=== PATIENT | male | born 1940 | race Caucasian/White ===

== ENCOUNTER 2020-06-15 19:50 | Inpatient (IN) ==
[2020-06-15] MEDS ORDERED: VANCOMYCIN/WATER FOR INJ (PEG) 1 GM/200 ML BAG IV ONE (20:29)
--- NOTE | 2020-06-15 20:35 | ERNOTE ---
Medical Problem HPI - General Chief Complaint: Diabetes Related Problem Time Seen by Provider: 06/15/20 20:28 - Immun/Allergies/Home Medications Immunizations: IMMUNIZATION HX Immunizations Up to Date Yes History of Influenza Vaccine More Information Required Hx Pneumococcal Vaccination Yes Allergies/Adverse Reactions: Allergies No Known Allergies Allergy (Unverified 06/15/20 20:04) Home Medications: HOME MEDICATIONS Enalapril Maleate 10 mg PO BID 06/15/20 [Last Taken Unknown] Gabapentin 100 mg PO QAM 06/15/20 [Last Taken Unknown] Gabapentin 200 mg PO QPM 06/15/20 [Last Taken Unknown] Metoprolol Succinate 100 mg PO DAILY 06/15/20 [Last Taken Unknown] Pioglitazone HCl 15 mg PO DAILY 06/15/20 [Last Taken Unknown] Simvastatin 40 mg PO HS 06/15/20 [Last Taken Unknown] Tamsulosin HCl 0.4 mg PO DAILY 06/15/20 [Last Taken Unknown] glipiZIDE [Glipizide Xl] 20 mg PO DAILY 06/15/20 [Last Taken Unknown] metFORMIN HCL [Metformin HCl] 1,000 mg PO BID 06/15/20 [Last Taken Unknown] - History of Present History Narrative: 79-year-old male presents complaining of left foot redness and swelling states that he had not taken his socks off since 4 to 5 days ago and when his daughter checked on him there was redness and a foul odor. Patient has history of diabetes and neuropathy and therefore chronically has pain in the foot he denies any new sensation any fevers and states that his sugar has been controlled. Review of Systems - Review of Systems Constitutional: Present: See HPI Skin: Present: See HPI Endocrine: Present: See HPI All Other Systems: All systems neg except as marked Medical History (Last Reviewed 06/15/20 @ 20:33 by Naeem Blanchard MD) Diabetes Diabetic neuropathy Hyperlipidemia Hypertension Surgical History: Surgical History (Last Reviewed 06/15/20 @ 20:33 by Naeem Blanchard MD) No pertinent past surgical history Family History: Family History (Last Reviewed 06/15/20 @ 20:33 by Naeem Blanchard MD) Other Family history non-contributory Social History: (Last Reviewed 06/15/20 @ 20:33 by Naeem Blanchard MD) Tobacco: Smoking Status: Former smoker Smoking packs per day: 1 Years smoked: 40 Alcohol: alcohol intake: never Physical Exam - Physical Exam General Appearance: Present: wd/wn, alert, no apparent distress Head Exam: Present: normal inspection, no evidence of injury Eye Exam: Normal inspection: bilateral Ears, Nose, Throat: Present: normal ENT inspection Neck: Present: normal inspection Respiratory: Present: no respiratory distress, no accessory muscle use Cardiovascular/Chest: Present: regular rate, rhythm Gastrointestinal/Abdominal: Present: nondistended Back Exam: Present: normal range of motion Extremity Exam: Present: other - Left foot great toe erythema tenderness and warmth with lymphatic spread up the foot noted is red streaking Neurological Exam: Present: alert, oriented, normal mood/affect Skin Exam: Present: other - As noted above on extremity exam Progress - Results and Orders Patient's Lab Results:: I have reviewed the patient's lab results. - Vital Signs Patient's Vital Signs:: I have reviewed the patient's vital signs. Vital Signs: Vital Signs 06/15/20 20:12 Temperature 38.1 C H Pulse Rate 101 H Respiratory Rate 15 Blood Pressure 111/44 O2 Sat by Pulse Oximetry 99 - Progress/Reassessment Chief Complaint: Diabetes Related Problem - Transfer of Care Physician Sign Out: Naeem Blanchard Receiving Physician: Braulio Betancourt Pending Results: CT/MRI results Expected Disposition: Admit Plan - Plan Plan: Patient handed off to oncoming ER doctor to follow-up CT scan patient likely for admission due to need to control atrial fibrillation with RVR Departure Clinical Impression: Atrial fibrillation with RVR, Abdominal pain - Departure Disposition: Short Term Hospital Inpatient Condition: Fair
[2020-06-15 20:47] LABS: Mean Cell Volume 101.4 fl (78-100); Mean Corpuscular Hemoglobin 30.6 pg (27-31); Mean Corpuscular Hgb Conc 30.2 g/dl (32-36); Mean Platelet Volume 12.6 fl (8-11.3); Platelet Count 208 K/mm3 (150-450); Red Blood Count 2.22 M/mm3 (4.7-6.0); Red Cell Distribution Width 23.2 % (11.5-14.0); White Blood Count 30.2 K/mm3 (4.0-10.5)
[2020-06-15 20:50] LABS: Hematocrit 22.5 % (42.0-52.0); Hemoglobin 6.8 gm/dL (13.5-18.0)
[2020-06-15 20:51] LABS: Total Cells Counted 100
[2020-06-15] MEDS ORDERED: NORMAL SALINE 500 ML IV ONE (20:56)
[2020-06-15 20:59] LABS: Albumin * 3.8 gm/dl (3.4-5.0); Anion Gap 18.3 mmol/L (6.8-13.8); BUN/Creatinine Ratio 23.8 (9.0-21.6); Bilirubin, Total 0.8 mg/dL (0.0-1.1); Ca. Corrected For Albumin 8.7 mg/dL (8.4-10.2); Calcium * 8.9 mg/dL (7.9-10.9); Carbon Dioxide 22.3 mmol/L (24-32.6); Potassium 4.6 mmol/L (3.4-4.6); Total Protein 7.7 gm/dL (6.2-8.2)
[2020-06-15 21:01] LABS: CRP 15.9 mg/dL (0.0-0.9)
[2020-06-15 21:04] LABS: Anisocytosis 1+; Band 5 % (0-2.0); Lymphocyte 15 % (20-51); Monocyte 10 % (0-9); Neutrophil 70 % (42-75); Neutrophil # 21.1 K/mm3 (1.3-6.0); Platelet Estimate Normal (NORMAL)
[2020-06-15 21:16] LABS: Hemoglobin A1C 6.4 % (3.80-5.60)
[2020-06-15] MEDS ORDERED: NORMAL SALINE 1,000 ML IV ONE (21:17)
[2020-06-15] MEDS ORDERED: diphenhydrAMINE HCL 50 MG/ML VIAL IV ONE (21:51)
[2020-06-15] MEDS ORDERED: FUROSEMIDE 10 MG/ML VIAL IV ONE (21:51)
[2020-06-15] MEDS ORDERED: ACETAMINOPHEN 325 MG TABLET PO ONE (21:51)
[2020-06-15] MEDS ORDERED: ACETAMINOPHEN 325 MG TABLET ONE (23:30)
[2020-06-15] MEDS ORDERED: diphenhydrAMINE HCL 50 MG/ML VIAL ONE (23:30)
[2020-06-16] MEDS ORDERED: FUROSEMIDE 10 MG/ML VIAL ONE (03:13)
[2020-06-16 04:28] LABS: Mean Corpuscular Hemoglobin 30.7 pg (27-31); Mean Corpuscular Hgb Conc 30.4 g/dl (32-36); Platelet Count 145 K/mm3 (150-450); Red Blood Count 2.02 M/mm3 (4.7-6.0); Red Cell Distribution Width 21.2 % (11.5-14.0); White Blood Count 23.1 K/mm3 (4.0-10.5)
[2020-06-16 04:30] LABS: Hematocrit 20.4 % (42.0-52.0); Hemoglobin 6.2 gm/dL (13.5-18.0)
[2020-06-16] MEDS: INSULIN LISPRO 100 UNITS/ML VIAL SC SCH ×3 (11:30→21:05)
[2020-06-16] MEDS: ENALAPRIL MALEATE 5 MG TABLET PO SCH ×2 (12:41→21:12)
[2020-06-16 14:28] LABS: Hematocrit 28.5 % (42.0-52.0); Hemoglobin 8.9 gm/dL (13.5-18.0); Mean Cell Volume 96.9 fl (78-100); Mean Corpuscular Hemoglobin 30.3 pg (27-31); Mean Corpuscular Hgb Conc 31.2 g/dl (32-36); Mean Platelet Volume 12.7 fl (8-11.3); Platelet Count 159 K/mm3 (150-450); Red Blood Count 2.94 M/mm3 (4.7-6.0); Red Cell Distribution Width 19.9 % (11.5-14.0); White Blood Count 22.9 K/mm3 (4.0-10.5)
[2020-06-16] MEDS: HYDROcodone/ACETAMINOPHEN 1 EACH TABLET PO PRN (14:31)
[2020-06-16 14:35] LABS: Total Cells Counted 100
[2020-06-16 14:47] LABS: Albumin * 3.5 gm/dl (3.4-5.0); Anion Gap 13.1 mmol/L (6.8-13.8); BUN/Creatinine Ratio 25.2 (9.0-21.6); Bilirubin, Total 0.7 mg/dL (0.0-1.1); Ca. Corrected For Albumin 8.7 mg/dL (8.4-10.2); Calcium * 8.6 mg/dL (7.9-10.9); Carbon Dioxide 24.3 mmol/L (24-32.6); Potassium 4.4 mmol/L (3.4-4.6); Total Protein 7.3 gm/dL (6.2-8.2)
[2020-06-16 15:02] LABS: Band 14 % (0-2.0); Basophil 3 % (0-1); Lymphocyte 12 % (20-51); Monocyte 10 % (0-9); Neutrophil 61 % (42-75)
[2020-06-16 15:06] LABS: Anisocytosis 2+
[2020-06-16 15:07] LABS: Giant Platelets Trace; Platelet Estimate Normal (NORMAL); Polychromasia 1+; Spherocyte Trace
--- NOTE | 2020-06-16 15:39 | CONS ---
- Reason for consultation (1) Diabetic foot ulcer associated with type 2 diabetes mellitus, with fat layer exposed Date of Service: 06/16/20 HPI - General Date of Service: 06/16/20 Narrative: Patient is seen today at the request of Dr. Fowler for ulceration to the left foot with foul odor, as well as cellulitis to the left foot. Patient reports history of callusing to the foot, but did notice any open sores until last week when he was walking through his house without shoes on. He was leaving a wet spot on the floor from his drainage when he would step. His daughter then checked on him and noticed redness and swelling along with a foul odor coming from the foot. He presented to the ED for further evaluation, and on top of having ulceration and cellulitis of his left foot, he was also found to be severely anemic. He was admitted for IV antibiotic therapy, and to manage anemia. I was consulted for care of his foot. He denies any nausea, vomiting, fevers, or chills. Only reports feeling very tired and weak. Source: patient - History of Present Illness Allergies/Adverse Reactions: Allergies No Known Allergies Allergy (Unverified 06/15/20 20:04) Home Medications: Home Medications Medication Instructions Recorded Last Taken Enalapril Maleate 10 mg PO BID 06/15/20 Unknown Gabapentin 100 mg PO QAM 06/15/20 Unknown Gabapentin 200 mg PO QPM 06/15/20 Unknown Metoprolol Succinate 100 mg PO DAILY 06/15/20 Unknown Pioglitazone HCl 15 mg PO DAILY 06/15/20 Unknown Simvastatin 40 mg PO HS 06/15/20 Unknown Tamsulosin HCl 0.4 mg PO DAILY 06/15/20 Unknown glipiZIDE [Glipizide Xl] 20 mg PO DAILY 06/15/20 Unknown metFORMIN HCL [Metformin HCl] 1,000 mg PO BID 06/15/20 Unknown Medications - Medications Current Medications: Current Medications Hydrocodone Bitart/Acetaminophen (Hydrocodone/Acetaminophen 1 Each Tablet) 1 each PO Q3H PRN PRN Reason: Moderate Pain (pain scale 4-6) Stop: 07/16/20 10:53 Last Admin: 06/16/20 14:31 Dose: 1 each Documented by: Enalapril Maleate (Enalapril Maleate 5 Mg Tablet) 10 mg PO BID [facility] Stop: 07/16/20 11:01 Last Admin: 06/16/20 12:41 Dose: 10 mg Documented by: Insulin Human Lispro (Insulin Lispro 100 Units/Ml Vial) 0 units SC DORA CURRY; Protocol Stop: 07/16/20 12:01 Last Admin: 06/16/20 11:30 Dose: Not Given Documented by: Review of Systems - Review of Systems Generalized/Overall Review: Present: Weakness, Fatigue. Absent: Chills, Fever Cardiac: Present: Edema Abdominal: Absent: Nausea, Vomiting, Diarrhea Musculoskeletal: Present: Other - foot pain Neurological: Present: Numbness, Tingling Skin: Present: Other - erythema left foot; ulcer left foot Physical Examination - Exam Narrative: Erythema noted about the medial forefoot and great toe. This currently does not extend past the 1st metatarsal. Area is warm to touch. There is edema about the lower leg and foot. There are 2 ulcerations to the left foot. The first located at the plantar surface of the 1st metatarsal head measuring 3 x 1.8 x 1.5 cm. The second is in the 1st webspace and communicates via tunneling with the first ulceration. This ulcer measures 2 x 1.2 x 1.5 cm. Loss of tissue to both is full thickness with exposure of subcutaneous fat layer. Bases of both ulcerations covered with black-louise, foul smelling, necrotic tissue. Surrounding skin callused, erythematous and edematous. There is a moderate amount of foul smelling sero- purulent drainage. No exposed tendon or bone at this time. Vital Signs: Vital Signs - Last Taken Temp 37.1 C 06/16/20 15:03 Pulse 71 06/16/20 15:03 Resp 18 06/16/20 15:03 BP 123/59 06/16/20 15:03 Pulse Ox 96 06/16/20 15:03 O2 Oxygen Delivery Method Room Air Constitutional: Present: Alert, Oriented x3, Cooperative Peripheral Pulses: dorsalis-pedis (L): 1+ - PT pulse 1+; CRFT brisk Extremity: Present: lower extremity edema, pedal edema Skin Exam: Present: other - see details above Neurologic: Present: sensory deficit Appearance: Present: appropriate appearance Eye contact: Present: cooperative - Results and Findings: Lab/Microbiology results last 24 hrs: Abnormal/Pending Laboratory Last 24 HRS 06/16/20 06/16/20 06/16/20 14:25 14:25 04:25 WBC 22.9 H 23.1 H D RBC 2.94 L 2.02 L Hgb 8.9 L 6.2 L* Hct 28.5 L 20.4 L* MCV 101.0 H MCHC 31.2 L 30.4 L RDW 19.9 H 21.2 H Plt Count 145 L MPV 12.7 H 12.0 H Band Neuts % (Manual) 14 H Lymphocytes % (Manual) 12 L Monocytes % (Manual) 10 H Basophils % (Manual) 3 H Neutrophils # (Manual) 14.0 H Lymphocytes # (Manual) Monocytes # (Manual) 2.3 H Basophils # (Manual) 0.7 H Carbon Dioxide Anion Gap BUN 35 H Creatinine Est GFR (Non-Af Amer) 53 L D BUN/Creatinine Ratio 25.2 H Random Glucose 54 L D Hemoglobin A1c Lactic Acid, Venous C-Reactive Prot, Quant Crossmatch 06/15/20 06/15/20 06/15/20 21:08 20:38 20:38 WBC RBC Hgb Hct MCV MCHC RDW Plt Count MPV Band Neuts % (Manual) Lymphocytes % (Manual) Monocytes % (Manual) Basophils % (Manual) Neutrophils # (Manual) Lymphocytes # (Manual) Monocytes # (Manual) Basophils # (Manual) Carbon Dioxide Anion Gap BUN Creatinine Est GFR (Non-Af Amer) BUN/Creatinine Ratio Random Glucose Hemoglobin A1c 6.4 H Lactic Acid, Venous 2.7 H* C-Reactive Prot, Quant Crossmatch See Detail 06/15/20 06/15/20 20:38 20:38 WBC 30.2 H RBC 2.22 L Hgb 6.8 L* Hct 22.5 L* MCV 101.4 H MCHC 30.2 L RDW 23.2 H Plt Count MPV 12.6 H Band Neuts % (Manual) 5 H Lymphocytes % (Manual) 15 L Monocytes % (Manual) 10 H Basophils % (Manual) Neutrophils # (Manual) 21.1 H Lymphocytes # (Manual) 4.5 H Monocytes # (Manual) 3.0 H Basophils # (Manual) Carbon Dioxide 22.3 L Anion Gap 18.3 H BUN 40 H Creatinine 1.68 H Est GFR (Non-Af Amer) 42 L BUN/Creatinine Ratio 23.8 H Random Glucose 150 H Hemoglobin A1c Lactic Acid, Venous C-Reactive Prot, Quant 15.9 H Crossmatch - Assessments/Findings (1) Diabetic foot ulcer associated with type 2 diabetes mellitus, with fat layer exposed Diagnosis(s): Discussed with patient exam findings as well as xray findings. Xrays not showing any osseous destruction to indicate bone infection. Discussed appearance of foot as well as ulcerations. Recommend debridment of ulcerations today, patient gives verbal consent for debridement. Ulcerations debrided to subcutaneous tissue with #15 blade, excising all surrounding callused and devitalized tissue down to healthy, bleeding subcutaneous tissue. Some necrotic tissue does remain over the surfaces of the ulcerations following debridement. Hemostasis is achieve with compression. Patient tolerated well without complication. Following debridement of the ulcers, a deep swab culture is obtained. Will continue on current IV antibiotics, and will adjust accordingly when culture results return. Ulcers dressed today with Aquacel Ag, dry gauze, roll gauze, secured with an ANALILIA bandage applied under mild compression to try to reduce some edema about the lower leg and foot. Will continue to monitor this closely. Advised that if foot does not show improvement, will likely order MRI to assess for deeper infection, possible bone infection, that is not showing on xrays. States understanding of this. I will plan to continue daily dressing changes to monitor his progress. Problem: Acute Qualifiers: Diabetic foot ulcer location: other Laterality: left Qualified Code(s): E11.621 - Type 2 diabetes mellitus with foot ulcer; L97.522 - Non-pressure chronic ulcer of other part of left foot with fat layer exposed (2) Cellulitis of foot, left Problem: Acute
[2020-06-16] MEDS: GABAPENTIN 100 MG CAPSULE PO SCH (17:11)
[2020-06-16] MEDS: VANCOMYCIN/WATER FOR INJ (PEG) 1.5 GM/300 ML BAG IV SCH (17:14)
[2020-06-16] MEDS: SIMVASTATIN 40 MG TABLET PO SCH (21:12)
--- NOTE | 2020-06-16 21:33 | HP ---
Chief Complaint - Chief Complaint Date of Service: 06/16/20 Time of Service: 09:45 Chief Complaint: Left foot redness, drainage, and swelling History of Present Illness: Stephen is a 79 yo male with Non-insulin dependent Type 2 Diabetes mellitus with diabetic neuropathy. He reports a week ago he started to notice a sore on his left foot. It progressively became more painful, started to drain yellow fluid, became more swollen, and more red. He presented to the [facility] ER due to worsening symptoms. In the ER bloodwork and imaging were performed. Xrays showed evidence of cellulitis with air associated with ulcer, and no evidence of osteomyelitis. WBC was significantly elevated at 30k and Hgb was 6.8. He denies history of anemia. He reports his foot has had a little bloody discharge at times, but no other significant blood loss. He has not been on antibiotics recently. He reports the wound began to smell bad in the last few days. Medical History (Last Reviewed 06/15/20 @ 21:56 by Chana Faulkner RN) Diabetes Diabetic neuropathy Hyperlipidemia Hypertension Surgical History: Surgical History (Last Reviewed 06/15/20 @ 21:56 by Chana Faulkner RN) No pertinent past surgical history Family History: Family History (Last Reviewed 06/15/20 @ 21:56 by Chana Faulkner RN) Other Family history non-contributory Social History: (Last Reviewed 06/15/20 @ 21:56 by Chana Faulkner RN) Tobacco: Smoking Status: Former smoker Smoking packs per day: 1 Years smoked: 40 Alcohol: alcohol intake: never Review Of Systems (GEN) - Review of Systems Generalized/Overall Review: Present: Weakness. Absent: Chills, Fever EENTM: Present: No Symptoms Reported Respiratory: Absent: Cough, Shortness of Breath Cardiac: Absent: Chest Pain, Edema Abdominal: Absent: Nausea, Vomiting, Abdominal Pain Genitourinary: Present: No Symptoms Reported Musculoskeletal: Present: Joint Pain Neurological: Present: Numbness, Weakness Skin: Present: Change in Color, Other - left foot redness, swelling, and drainage Endocrine: Present: No Symptoms Reported Immunizations: IMMUNIZATION HX Immunizations Up to Date Yes History of Influenza Vaccine More Information Required Hx Pneumococcal Vaccination Yes Allergies/Adverse Reactions: Allergies Allergy/AdvReac Type Severity Reaction Status Date / Time No Known Allergies Allergy Unverified 06/15/20 20:04 Home Medications: HOME MEDICATIONS Enalapril Maleate 10 mg PO BID 06/15/20 [Last Taken Unknown] Gabapentin 100 mg PO QAM 06/15/20 [Last Taken Unknown] Gabapentin 200 mg PO QPM 06/15/20 [Last Taken Unknown] Metoprolol Succinate 100 mg PO DAILY 06/15/20 [Last Taken Unknown] Pioglitazone HCl 15 mg PO DAILY 06/15/20 [Last Taken Unknown] Simvastatin 40 mg PO HS 06/15/20 [Last Taken Unknown] Tamsulosin HCl 0.4 mg PO DAILY 06/15/20 [Last Taken Unknown] glipiZIDE [Glipizide Xl] 20 mg PO DAILY 06/15/20 [Last Taken Unknown] metFORMIN HCL [Metformin HCl] 1,000 mg PO BID 06/15/20 [Last Taken Unknown] Exam - Exam Vital Signs: Vital Signs - Last Taken Temp 36.4 C 06/16/20 21:11 Pulse 71 06/16/20 21:12 Resp 18 06/16/20 21:11 BP 123/41 06/16/20 21:12 Pulse Ox 99 06/16/20 21:11 Constitutional: Present: Alert, Oriented x3, Cooperative ENT Exam: Present: hearing grossly normal Eye Exam: bilateral eye: normal inspection Respiratory: Present: lungs clear, normal breath sounds, no respiratory distress Cardiovascular/Chest: Present: regular rate, rhythm, no murmur Peripheral Pulses: radial (R): 2+, radial (L): 2+ Abdomen: Present: Normal bowel sounds, soft, nontender, nondistended, no rebound tenderness Skin Exam: Present: other - erythema from left great toe up medial aspect of foot to ankle. Foul smelling wound with purulent drainage. Open ulcer on the plantar surface of 1st metatarsal head Diagnostic Studies: Abnormal Lab Results 06/15/20 06/16/20 06/16/20 Range/Units 21:08 04:25 14:25 WBC 23.1 H D 22.9 H (4.0-10.5) K/mm3 RBC 2.02 L 2.94 L (4.7-6.0) M/mm3 Hgb 6.2 L* 8.9 L (13.5-18.0) gm/dL Hct 20.4 L* 28.5 L (42.0-52.0) % MCV 101.0 H (78-100) fl MCHC 30.4 L 31.2 L (32-36) g/dl RDW 21.2 H 19.9 H (11.5-14.0) % Plt Count 145 L (150-450) K/mm3 MPV 12.0 H 12.7 H (8-11.3) fl Band Neuts % (Manual) 14 H (0-2.0) % Lymphocytes % (Manual) 12 L (20-51) % Monocytes % (Manual) 10 H (0-9) % Basophils % (Manual) 3 H (0-1) % Neutrophils # (Manual) 14.0 H (1.3-6.0) K/mm3 Monocytes # (Manual) 2.3 H (0.0-1.0) k/mm3 Basophils # (Manual) 0.7 H (0.0-0.1) k/mm3 BUN (6-23) mg/dL Est GFR (Non-Af Amer) (60-130) mL/min BUN/Creatinine Ratio (9.0-21.6) Random Glucose (70-110) mg/dL Crossmatch See Detail 06/16/20 Range/Units 14:25 WBC (4.0-10.5) K/mm3 RBC (4.7-6.0) M/mm3 Hgb (13.5-18.0) gm/dL Hct (42.0-52.0) % MCV (78-100) fl MCHC (32-36) g/dl RDW (11.5-14.0) % Plt Count (150-450) K/mm3 MPV (8-11.3) fl Band Neuts % (Manual) (0-2.0) % Lymphocytes % (Manual) (20-51) % Monocytes % (Manual) (0-9) % Basophils % (Manual) (0-1) % Neutrophils # (Manual) (1.3-6.0) K/mm3 Monocytes # (Manual) (0.0-1.0) k/mm3 Basophils # (Manual) (0.0-0.1) k/mm3 BUN 35 H (6-23) mg/dL Est GFR (Non-Af Amer) 53 L D (60-130) mL/min BUN/Creatinine Ratio 25.2 H (9.0-21.6) Random Glucose 54 L D (70-110) mg/dL Crossmatch Microbiology 06/15/20 21:08 Blood Culture - Preliminary Blood NO GROWTH 24 HOURS 06/15/20 20:38 Blood Culture - Preliminary Blood NO GROWTH 24 HOURS Laboratory Results WBC 22.9 K/mm3 (4.0-10.5) H 06/16/20 14:25 RBC 2.94 M/mm3 (4.7-6.0) L 06/16/20 14:25 Hgb 8.9 gm/dL (13.5-18.0) L 06/16/20 14:25 Hct 28.5 % (42.0-52.0) L 06/16/20 14:25 MCV 96.9 fl (78-100) 06/16/20 14:25 MCH 30.3 pg (27-31) 06/16/20 14:25 MCHC 31.2 g/dl (32-36) L 06/16/20 14:25 RDW 19.9 % (11.5-14.0) H 06/16/20 14:25 Plt Count 159 K/mm3 (150-450) 06/16/20 14:25 MPV 12.7 fl (8-11.3) H 06/16/20 14:25 Neutrophils % (Manual) 61 % (42-75) 06/16/20 14:25 Band Neuts % (Manual) 14 % (0-2.0) H 06/16/20 14:25 Lymphocytes % (Manual) 12 % (20-51) L 06/16/20 14:25 Monocytes % (Manual) 10 % (0-9) H 06/16/20 14:25 Basophils % (Manual) 3 % (0-1) H 06/16/20 14:25 Neutrophils # (Manual) 14.0 K/mm3 (1.3-6.0) H 06/16/20 14:25 Lymphocytes # (Manual) 2.7 k/mm3 (1.5-3.5) 06/16/20 14:25 Monocytes # (Manual) 2.3 k/mm3 (0.0-1.0) H 06/16/20 14:25 Basophils # (Manual) 0.7 k/mm3 (0.0-0.1) H 06/16/20 14:25 Platelet Estimate Normal (NORMAL) 06/16/20 14:25 Giant Platelets Trace 06/16/20 14:25 Polychromasia 1+ 06/16/20 14:25 Anisocytosis 2+ 06/16/20 14:25 Spherocytes Trace 06/16/20 14:25 Peripheral Blood Smear Smear sent to path. 06/16/20 14:25 Sodium 137 mmol/L (132-142) 06/16/20 14:25 Plasma Sodium 136 mmol/L (130-142) 06/16/20 14:25 Potassium 4.4 mmol/L (3.4-4.6) 06/16/20 14:25 Chloride 104 mmol/L (97-106) 06/16/20 14:25 Carbon Dioxide 24.3 mmol/L (24-32.6) 06/16/20 14:25 Anion Gap 13.1 mmol/L (6.8-13.8) 06/16/20 14:25 BUN 35 mg/dL (6-23) H 06/16/20 14:25 Creatinine 1.39 mg/dL (0.4-1.4) 06/16/20 14:25 Est GFR (Non-Af Amer) 53 mL/min (60-130) L D 06/16/20 14:25 BUN/Creatinine Ratio 25.2 (9.0-21.6) H 06/16/20 14:25 Random Glucose 54 mg/dL (70-110) L D 06/16/20 14:25 Mean Blood Glucose 137 mg/dL 06/15/20 20:38 Hemoglobin A1c 6.4 % (3.80-5.60) H 06/15/20 20:38 Lactic Acid, Venous 1.0 mmol/L (0.4-2.0) 06/15/20 23:56 Calcium 8.6 mg/dL (7.9-10.9) 06/16/20 14:25 Calcium Adj for Albumin 8.7 mg/dL (8.4-10.2) 06/16/20 14:25 Total Bilirubin 0.7 mg/dL (0.0-1.1) 06/16/20 14:25 AST 26 U/L (0-48) 06/16/20 14:25 ALT 23 U/L (19-67) 06/16/20 14:25 Alkaline Phosphatase 69 U/L (50-170) 06/16/20 14:25 C-Reactive Prot, Quant 15.9 mg/dL (0.0-0.9) H 06/15/20 20:38 Total Protein 7.3 gm/dL (6.2-8.2) 06/16/20 14:25 Albumin 3.5 gm/dl (3.4-5.0) 06/16/20 14:25 Stool Occult Blood Negative 06/15/20 21:15 SARS-CoV-2 (PCR) Not detected (NotDetected) 06/15/20 21:29 Blood Type O Positive 06/15/20 21:08 Antibody Screen Negative 06/15/20 21:08 Crossmatch See Detail 06/15/20 21:08 Assessment/Plan - Narrative Narrative: Stephen is a 79yo male with left foot cellulitis secondary to diabetic foot ulcer secondary to diabetic neuropathy. He was started on vancomycin in the ER. His foot and wound do not look significantly improved and has erythema of foot and foul smelling discharge. Will consult podiatry for management of infection. Will continue vancomycin at this time with pharmacy to dose. There may be concern for osteomyelitis and may need MRI of foot to further determine degree of infection. He also has profound anemia of unknown origin. He denies history of anemia, but his Hgb of 6.8 is severe. He will be transfused units of blood and will obtain peripheral blood smear. It sounds as though the wound has bled some, but not significant enough to be a major player in his Hgb of 6.8. This could be chronic, but I do not have any labs to compare recently. He has no symptoms of blood loss. With his severe leukocytosis of 30k and profound anemia there could be a bone marrow disease at play. May need a hematology consult as outpatient. Due to profound anemia that will need blood transfusions as well as cellulitis with diabetic ulcer that is not improving and will need inpatient management with podiatry he will be admitted to inpatient status. Expect 3 or more days of evaluation, treatment, and monitoring of response. - Assessment/Plan (1) Cellulitis of foot, left Problem: Acute (2) Anemia Problem: Acute Qualifiers: Anemia type: unspecified type Qualified Code(s): D64.9 - Anemia, unspecified (3) Diabetic foot ulcer associated with type 2 diabetes mellitus, with fat layer exposed Problem: Acute Qualifiers: Diabetic foot ulcer location: other Laterality: left Qualified Code(s): E11.621 - Type 2 diabetes mellitus with foot ulcer; L97.522 - Non-pressure chronic ulcer of other part of left foot with fat layer exposed
[2020-06-17] MEDS: HYDROcodone/ACETAMINOPHEN 1 EACH TABLET PO PRN (02:53)
[2020-06-17] MEDS: INSULIN LISPRO 100 UNITS/ML VIAL SC SCH ×4 (07:35→20:23)
[2020-06-17 09:05] LABS: Albumin * 3.1 gm/dl (3.4-5.0); Anion Gap 12.6 mmol/L (6.8-13.8); BUN/Creatinine Ratio 19.5 (9.0-21.6); Bilirubin, Total 1.1 mg/dL (0.0-1.1); Ca. Corrected For Albumin 8.6 mg/dL (8.4-10.2); Calcium * 8.2 mg/dL (7.9-10.9); Carbon Dioxide 23.6 mmol/L (24-32.6); Potassium 4.2 mmol/L (3.4-4.6); Total Protein 6.6 gm/dL (6.2-8.2)
[2020-06-17 09:09] LABS: Hematocrit 28.1 % (42.0-52.0); Hemoglobin 8.9 gm/dL (13.5-18.0); Mean Cell Volume 97.6 fl (78-100); Mean Corpuscular Hemoglobin 30.9 pg (27-31); Mean Corpuscular Hgb Conc 31.7 g/dl (32-36); Mean Platelet Volume 12.7 fl (8-11.3); Platelet Count 178 K/mm3 (150-450); Red Blood Count 2.88 M/mm3 (4.7-6.0); White Blood Count 25.3 K/mm3 (4.0-10.5)
[2020-06-17 09:12] LABS: Total Cells Counted 100
[2020-06-17 09:27] LABS: Anisocytosis 1+; Band 5 % (0-2.0); Basophil 1 % (0-1); Lymphocyte 11 % (20-51); Monocyte 17 % (0-9); Neutrophil 66 % (42-75); Neutrophil # 16.7 K/mm3 (1.3-6.0); Platelet Estimate Normal (NORMAL)
[2020-06-17] MEDS: ENALAPRIL MALEATE 5 MG TABLET PO SCH ×2 (09:39→20:20)
[2020-06-17] MEDS: METOPROLOL SUCCINATE 100 MG TABLET.SA PO SCH (09:41)
[2020-06-17] MEDS: GABAPENTIN 100 MG CAPSULE PO SCH ×2 (09:42→16:22)
[2020-06-17] MEDS: TAMSULOSIN HCL 0.4 MG CAP.SR.24H PO SCH (09:42)
[2020-06-17] MEDS: VANCOMYCIN/WATER FOR INJ (PEG) 1.5 GM/300 ML BAG IV SCH (16:27)
--- NOTE | 2020-06-17 17:31 | PN ---
Subjective - Date and Time Seen Date: 06/17/20 Time: 16:45 Subjective Narrative: Patient is seen at bedside resting. Reports he feels his foot pain has improved since yesterday. Still feels very tired, and states that he has been sleeping most of the time. Dressing to the left foot has remained clean, dry, and intact as instructed. He denies any nausea, vomiting, fevers, or chills. Preliminary culture results growing Staphylococcus species. No new concerns today. Objective - Review of Systems Generalized/Overall Review: Reports: Weakness, Fatigue. Denies: Chills, Fever Cardiac: Reports: Edema Abdominal: Denies: Nausea, Vomiting, Diarrhea Neurological: Reports: Numbness, Tingling Skin: Reports: Other - erythema left foot; ulcer left foot - Vitals Vitals: Last Vital Signs Temp 36.8 C 06/17/20 13:51 Pulse 86 06/17/20 14:00 Resp 20 06/17/20 13:51 BP 108/39 06/17/20 13:51 Pulse Ox 90 L 06/17/20 13:51 - Abnormal Lab Findings Abnormal Lab Findings: Abnormal Lab Results 06/17/20 06/17/20 Range/Units 08:20 08:20 WBC 25.3 H (4.0-10.5) K/mm3 RBC 2.88 L (4.7-6.0) M/mm3 Hgb 8.9 L (13.5-18.0) gm/dL Hct 28.1 L (42.0-52.0) % MCHC 31.7 L (32-36) g/dl RDW 20.0 H (11.5-14.0) % MPV 12.7 H (8-11.3) fl Band Neuts % (Manual) 5 H (0-2.0) % Lymphocytes % (Manual) 11 L (20-51) % Monocytes % (Manual) 17 H (0-9) % Neutrophils # (Manual) 16.7 H (1.3-6.0) K/mm3 Monocytes # (Manual) 4.3 H (0.0-1.0) k/mm3 Basophils # (Manual) 0.3 H (0.0-0.1) k/mm3 Carbon Dioxide 23.6 L (24-32.6) mmol/L BUN 25 H (6-23) mg/dL Est GFR (Non-Af Amer) 58 L (60-130) mL/min Random Glucose 129 H D (70-110) mg/dL Albumin 3.1 L (3.4-5.0) gm/dl - Exam Exam Narrative: Erythema with significant improvement about the medial left forefoot and great toe. It is now only localized to the lateral base of the great toe and 1st MtPJ area. Remainder of great toe now pink in color. There are 2 ulcerations to the left foot. The first located at the plantar surface of the 1st metatarsal head measuring 3 x 1.8 x 1.5 cm. The second is in the 1st webspace and communicates via tunneling with the first ulceration. This ulcer measures 2 x 1.2 x 1.5 cm. Loss of tissue to both is full thickness with exposure of subcutaneous fat layer. Base of ulceration in the webspace remains covered with mostly with black-louise, foul smelling, necrotic tissue. Ulceration to plantar surface of the 1st metatarsal head now with mostly yellow, fibrotic slough tissue, however there is still some foul smelling, dark louise necrotic tissue noted distally where it communicates with the webspace ulceration. Surrounding skin erythematous and edematous, both have improved since visit yesterday. There is a moderate amount of foul smelling sero- purulent drainage. No exposed tendon or bone at this time. Constitutional: Present: Alert, Oriented x3, Cooperative Extremity: Present: pedal edema Skin Exam: Present: other - see details above Neurologic: Present: sensory deficit Appearance: Present: appropriate appearance Eye contact: Present: cooperative Assessment/Plan Plan Narrative: Discussed with patient exam findings. Recommend repeat debridment of ulcerations today, patient gives verbal consent for debridement. Ulcerations debrided to subcutaneous tissue with currettage, excising devitalized tissue down to healthy, bleeding subcutaneous tissue. Some necrotic tissue does remain over the surfaces of the ulcerations following debridement. Hemostasis is achieve with compression. Patient tolerated well without complication. Ulcerations are cleansed with sterile saline and dressed today with Aquacel Ag, dry gauze, roll gauze, secured with an ANALILIA bandage applied under mild compression to try to reduce some edema about the lower leg and foot. Will continue to monitor this closely. Will continue on current IV antibiotics, and will adjust accordingly when culture results return. His erythema has improved since visit yesterday, and plantar foot ulcer also has made some improvement in appearance. Advised that if foot does not continue to show improvement, will likely order MRI to assess for deeper infection, possible bone infection, that is not showing on xrays. States understanding of this. Will order surgical shoe to be worn with weightbearing activities. I will plan to continue daily dressing changes to monitor his progress. 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
[2020-06-17] MEDS: SIMVASTATIN 40 MG TABLET PO SCH (20:21)
--- NOTE | 2020-06-17 21:44 | PN ---
Subjective - Date and Time Seen Date: 06/17/20 Time: 16:30 Subjective Narrative: Stephen reports pain is 6/10, but improves to 3/10 with gabapentin. He had a fever overnight, but none through the day. He reports sweats today. Objective - Vitals Vitals: Last Vital Signs Temp 36.7 C 06/17/20 18:19 Pulse 90 06/17/20 20:20 Resp 24 H 06/17/20 18:19 BP 122/40 06/17/20 20:20 Pulse Ox 92 L 06/17/20 18:19 - Abnormal Lab Findings Abnormal Lab Findings: Abnormal Lab Results 06/17/20 06/17/20 Range/Units 08:20 08:20 WBC 25.3 H (4.0-10.5) K/mm3 RBC 2.88 L (4.7-6.0) M/mm3 Hgb 8.9 L (13.5-18.0) gm/dL Hct 28.1 L (42.0-52.0) % MCHC 31.7 L (32-36) g/dl RDW 20.0 H (11.5-14.0) % MPV 12.7 H (8-11.3) fl Band Neuts % (Manual) 5 H (0-2.0) % Lymphocytes % (Manual) 11 L (20-51) % Monocytes % (Manual) 17 H (0-9) % Neutrophils # (Manual) 16.7 H (1.3-6.0) K/mm3 Monocytes # (Manual) 4.3 H (0.0-1.0) k/mm3 Basophils # (Manual) 0.3 H (0.0-0.1) k/mm3 Carbon Dioxide 23.6 L (24-32.6) mmol/L BUN 25 H (6-23) mg/dL Est GFR (Non-Af Amer) 58 L (60-130) mL/min Random Glucose 129 H D (70-110) mg/dL Albumin 3.1 L (3.4-5.0) gm/dl - Exam Constitutional: Present: Alert, Oriented x3, Cooperative, No distress ENT Exam: Present: hearing grossly normal Respiratory: Present: lungs clear, normal breath sounds Cardiovascular/Chest: Present: regular rate, rhythm, no murmur Abdomen: Present: Normal bowel sounds, soft, nontender, nondistended Extremity: Present: other - Left foot wrapped Assessment/Plan Plan Narrative: WBC increased today from 22k to 25k. Renal function has improved to normal. Hgb stable at 8.9 following transfusion. Peripheral smear pending. Continue vancomycin until cultures return. Continue wound management by Dr. Shah. May get MRI if concerns of osteomyelitis. Potential discharge in the next 1-3 days based on culture growth and WBC. Will need anemia work up as outpatient. 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
[2020-06-18 06:45] LABS: Hematocrit 28.9 % (42.0-52.0); Hemoglobin 9.1 gm/dL (13.5-18.0); Mean Corpuscular Hemoglobin 30.8 pg (27-31); Mean Corpuscular Hgb Conc 31.5 g/dl (32-36); Mean Platelet Volume 12.9 fl (8-11.3); Platelet Count 207 K/mm3 (150-450); Red Blood Count 2.95 M/mm3 (4.7-6.0); Red Cell Distribution Width 20.4 % (11.5-14.0); White Blood Count 26.7 K/mm3 (4.0-10.5)
[2020-06-18] MEDS: INSULIN LISPRO 100 UNITS/ML VIAL SC SCH ×4 (06:49→22:44)
[2020-06-18 06:54] LABS: Albumin * 3.2 gm/dl (3.4-5.0); Anion Gap 17.2 mmol/L (6.8-13.8); BUN/Creatinine Ratio 17.9 (9.0-21.6); Bilirubin, Total 1.3 mg/dL (0.0-1.1); Calcium * 8.7 mg/dL (7.9-10.9); Carbon Dioxide 21.8 mmol/L (24-32.6); Total Protein 7.1 gm/dL (6.2-8.2)
[2020-06-18 06:57] LABS: Total Cells Counted 100
[2020-06-18 07:33] LABS: Anisocytosis 1+; Band 3 % (0-2.0); Basophil 4 % (0-1); Eosinophil 2 % (0-3); Immature Granulocyte 5 (0-1); Lymphocyte 8 % (20-51); Monocyte 18 % (0-9); Neutrophil 60 % (42-75); Ovalocytes Trace; Platelet Estimate Normal (NORMAL); Spherocyte Trace
[2020-06-18] MEDS: TAMSULOSIN HCL 0.4 MG CAP.SR.24H PO SCH (09:28)
[2020-06-18] MEDS: METOPROLOL SUCCINATE 100 MG TABLET.SA PO SCH (09:28)
[2020-06-18] MEDS: GABAPENTIN 100 MG CAPSULE PO SCH ×2 (09:28→17:37)
[2020-06-18] MEDS: HYDROcodone/ACETAMINOPHEN 1 EACH TABLET PO PRN ×2 (09:29→19:58)
[2020-06-18] MEDS: ENALAPRIL MALEATE 5 MG TABLET PO SCH ×2 (09:29→20:01)
[2020-06-18] MEDS: SACCHAROMYCES BOULARDII 250 MG CAPSULE PO SCH ×2 (13:23→20:01)
[2020-06-18] MEDS: PIPERACILLIN SODIUM/TAZOBACTAM 3.375 GM in DEXTROSE 5 % IN WATER 100 ML IV SCH ×4 (13:23→22:48)
--- NOTE | 2020-06-18 14:21 | PN ---
Subjective - Date and Time Seen Date: 06/18/20 Time: 13:49 Subjective Narrative: Patient is seen at bedside resting. Reports that he is not feeling as tired today. Still with some intermittent pain in his left foot. Dressing to the left foot has remained clean, dry, and intact as instructed. He denies any nausea, vomiting, fevers, or chills. Preliminary culture results growing Staphylococcus species and two separate Strep species, no final culture results at time of visit. No new concerns today. Objective - Review of Systems Generalized/Overall Review: Reports: Fatigue. Denies: Chills, Fever Cardiac: Reports: Edema Abdominal: Denies: Nausea, Vomiting, Diarrhea Musculoskeletal Complaints: Reports: Other - intermittent left foot pain Neurological: Reports: Numbness Skin: Reports: Other - left foot ulcerations; left foot erythema - improving Endocrine: Denies: Excessive Sweating, Increased Hunger, Increased Thirst - Vitals Vitals: Last Vital Signs Temp 36.6 C 06/18/20 09:38 Pulse 96 06/18/20 09:38 Resp 16 06/18/20 09:38 BP 124/52 06/18/20 09:38 Pulse Ox 92 L 06/18/20 09:38 - Abnormal Lab Findings Abnormal Lab Findings: Abnormal Lab Results 06/18/20 06/18/20 Range/Units 06:33 06:33 WBC 26.7 H (4.0-10.5) K/mm3 RBC 2.95 L (4.7-6.0) M/mm3 Hgb 9.1 L (13.5-18.0) gm/dL Hct 28.9 L (42.0-52.0) % MCHC 31.5 L (32-36) g/dl RDW 20.4 H (11.5-14.0) % MPV 12.9 H (8-11.3) fl Band Neuts % (Manual) 3 H (0-2.0) % Lymphocytes % (Manual) 8 L (20-51) % Monocytes % (Manual) 18 H (0-9) % Basophils % (Manual) 4 H (0-1) % Immature Granulocytes 5 H (0-1) Neutrophils # (Manual) 16.0 H (1.3-6.0) K/mm3 Monocytes # (Manual) 4.8 H (0.0-1.0) k/mm3 Basophils # (Manual) 1.1 H (0.0-0.1) k/mm3 Carbon Dioxide 21.8 L (24-32.6) mmol/L Anion Gap 17.2 H (6.8-13.8) mmol/L Random Glucose 139 H (70-110) mg/dL Total Bilirubin 1.3 H (0.0-1.1) mg/dL Albumin 3.2 L (3.4-5.0) gm/dl - Exam Exam Narrative: Erythema remains improved about the medial left forefoot and great toe. It is now only localized to the lateral base of the great toe. Remainder of great toe pink in color. There are 2 ulcerations to the left foot. The first located at the plantar surface of the 1st metatarsal head measuring 3 x 1.8 x 1.5 cm. The second is in the 1st webspace and communicates via tunneling with the first ulceration. This ulcer measures 2 x 1.2 x 1.5 cm. Loss of tissue to both is full thickness with exposure of subcutaneous fat layer. Base of ulceration in the webspace remains covered with mostly with black-louise, foul smelling, necrotic tissue. Ulceration to plantar surface of the 1st metatarsal head with mostly yellow, fibrotic slough tissue, however there remains some foul smelling, dark louise necrotic tissue distally where it communicates with the webspace ulceration. Surrounding skin of the webspace remains erythematous and edematous, skin otherwise pink and intact, both have improved slightly since visit yesterday. There remains a moderate amount of foul smelling sero-purulent drainage. No exposed tendon or bone at this time. Constitutional: Present: Alert, Oriented x3, Cooperative Extremity: Present: pedal edema - improving Skin Exam: Present: other - see details above Neurologic: Present: sensory deficit Eye contact: Present: cooperative Thoughts: Present: normal thought pattern Assessment/Plan Plan Narrative: Discussed with patient exam findings. Recommend repeat debridment of ulcerations today, patient gives verbal consent for debridement. Ulcerations debrided to subcutaneous tissue with currettage as well as with a forceps and #15 blade, excising devitalized tissue down to healthy, bleeding subcutaneous tissue. Some necrotic tissue does remain over the surfaces of the ulcerations following debridement. Hemostasis is achieve with compression. Patient tolerated well without complication. Ulcerations are cleansed with sterile saline and dressed today with dry gauze, roll gauze, secured with an ANALILIA bandage applied under mild compression to try to reduce some edema about the lower leg and foot. Will continue on current IV antibiotics, and will adjust accordingly when culture results return. His erythema has improved since visit yesterday, a nd plantar foot ulcer also has made some further improvement in appearance, however webspace ulcer still with black-louise necrosis and foul odor. His WBC count has also elevated since yesterday. I have concerns of deeper infection that may not have shown on xrays, so will order foot MRI today. It is my hope to be able to continue with local care only, however it is discussed the possibility of need for more extensive surgical debridement and possible amputation pending MRI results. States understanding of this. I will plan to continue daily dressing changes to monitor his progress. 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
--- NOTE | 2020-06-18 15:25 | PN ---
Subjective - Date and Time Seen Date: 06/18/20 Time: 12:00 Subjective Narrative: Stephen reports feeling better. His WBC is elevated higher today. Dr. Shah feels the cellulitis and swelling are improved. Hgb is increased a little today. Objective - Vitals Vitals: Last Vital Signs Temp 36.3 C 06/18/20 14:28 Pulse 78 06/18/20 14:28 Resp 16 06/18/20 14:28 BP 105/56 06/18/20 14:28 Pulse Ox 93 06/18/20 14:28 - Abnormal Lab Findings Abnormal Lab Findings: Abnormal Lab Results 06/18/20 06/18/20 Range/Units 06:33 06:33 WBC 26.7 H (4.0-10.5) K/mm3 RBC 2.95 L (4.7-6.0) M/mm3 Hgb 9.1 L (13.5-18.0) gm/dL Hct 28.9 L (42.0-52.0) % MCHC 31.5 L (32-36) g/dl RDW 20.4 H (11.5-14.0) % MPV 12.9 H (8-11.3) fl Band Neuts % (Manual) 3 H (0-2.0) % Lymphocytes % (Manual) 8 L (20-51) % Monocytes % (Manual) 18 H (0-9) % Basophils % (Manual) 4 H (0-1) % Immature Granulocytes 5 H (0-1) Neutrophils # (Manual) 16.0 H (1.3-6.0) K/mm3 Monocytes # (Manual) 4.8 H (0.0-1.0) k/mm3 Basophils # (Manual) 1.1 H (0.0-0.1) k/mm3 Carbon Dioxide 21.8 L (24-32.6) mmol/L Anion Gap 17.2 H (6.8-13.8) mmol/L Random Glucose 139 H (70-110) mg/dL Total Bilirubin 1.3 H (0.0-1.1) mg/dL Albumin 3.2 L (3.4-5.0) gm/dl - Exam Constitutional: Present: Alert, Oriented x3, Cooperative ENT Exam: Present: hearing grossly normal Respiratory: Present: lungs clear, normal breath sounds, no respiratory distress Cardiovascular/Chest: Present: regular rate, rhythm, no murmur Abdomen: Present: Normal bowel sounds, soft, nontender, nondistended, no rebound tenderness Skin Exam: Present: other - left foot wrapped Neurologic: Present: alert, normal mood/affect, oriented x 3 Appearance: Present: appropriate appearance, appropriate insight Eye contact: Present: cooperative, good eye contact, normal speech Thoughts: Present: normal thought pattern, no apparent hallucination Assessment/Plan Plan Narrative: His rising WBC is concerning that there may be more developing where we cannot see. Discussed with Dr. Shah and we will obtain an MRI to evaluate for further areas of infection and possibly osteomyelitis. I have also added zosyn due to his rising WBC. Still awaiting culture sensitivity. Once that returns, may adjust antibiotics further but with his worsening WBC the best course is to broaden his antibiotics. Blood cultures are negative x 2, I am not concerned about sepsis. Hemoglobin kamari further today, will continue to monitor. 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
[2020-06-18] MEDS ORDERED: VANCOMYCIN/WATER FOR INJ (PEG) 2 GM/400 ML BAG IV SCH (17:00)
[2020-06-18] MEDS: SIMVASTATIN 40 MG TABLET PO SCH (20:01)
[2020-06-19] MEDS: PIPERACILLIN SODIUM/TAZOBACTAM 3.375 GM in DEXTROSE 5 % IN WATER 100 ML IV SCH ×4 (03:04→11:29)
[2020-06-19] MEDS: HYDROcodone/ACETAMINOPHEN 1 EACH TABLET PO PRN ×2 (03:04→14:34)
[2020-06-19] MEDS: INSULIN LISPRO 100 UNITS/ML VIAL SC SCH ×4 (06:44→20:58)
[2020-06-19 08:03] LABS: Hematocrit 29.3 % (42.0-52.0); Hemoglobin 9.2 gm/dL (13.5-18.0); Mean Cell Volume 97.3 fl (78-100); Mean Corpuscular Hemoglobin 30.6 pg (27-31); Mean Corpuscular Hgb Conc 31.4 g/dl (32-36); Mean Platelet Volume 12.4 fl (8-11.3); Neutrophil # 16.4 K/mm3 (1.3-6.0); Neutrophil % 65.8 % (42-75.0); Platelet Count 241 K/mm3 (150-450); Red Blood Count 3.01 M/mm3 (4.7-6.0); Red Cell Distribution Width 19.7 % (11.5-14.0); White Blood Count 24.8 K/mm3 (4.0-10.5)
[2020-06-19] MEDS: GABAPENTIN 100 MG CAPSULE PO SCH ×2 (08:11→17:15)
[2020-06-19] MEDS: METOPROLOL SUCCINATE 100 MG TABLET.SA PO SCH (08:11)
[2020-06-19] MEDS: TAMSULOSIN HCL 0.4 MG CAP.SR.24H PO SCH (08:11)
[2020-06-19] MEDS: ENALAPRIL MALEATE 5 MG TABLET PO SCH ×2 (08:12→20:57)
[2020-06-19] MEDS: SACCHAROMYCES BOULARDII 250 MG CAPSULE PO SCH ×2 (08:12→20:57)
[2020-06-19 08:35] LABS: Total Cells Counted 100
--- NOTE | 2020-06-19 08:49 | PN ---
Subjective - Date and Time Seen Date: 06/19/20 Time: 08:45 Subjective Narrative: Stephen reports feeling well. WBC improved slightly to 24K. Hemoglobin trending up a little to 9.2. No fever, chills, nausea, or vomiting. Objective - Vitals Vitals: Last Vital Signs Temp 36.2 C 06/19/20 06:41 Pulse 74 06/19/20 08:12 Resp 18 06/19/20 06:41 BP 129/49 06/19/20 08:12 Pulse Ox 92 L 06/19/20 06:41 - Abnormal Lab Findings Abnormal Lab Findings: Abnormal Lab Results 06/19/20 Range/Units 07:51 WBC 24.8 H (4.0-10.5) K/mm3 RBC 3.01 L (4.7-6.0) M/mm3 Hgb 9.2 L (13.5-18.0) gm/dL Hct 29.3 L (42.0-52.0) % MCHC 31.4 L (32-36) g/dl RDW 19.7 H (11.5-14.0) % MPV 12.4 H (8-11.3) fl Immature Gran % (Auto) 13.90 H (0.001-0.429) % Immature Gran # (Auto) 3.45 H (0.000-0.0310) K/mm3 Lymphocytes % 5.2 L (20-51) % Monocytes % 12.2 H (0.0-9) % Basophils % 1.9 H (0.0-1.0) % Neutrophils # 16.4 H (1.3-6.0) K/mm3 Lymphocytes # 1.28 L (1.5-3.5) k/mm3 Monocytes # 3.0 H (0.0-1.0) k/mm3 Absolute Basophils 0.5 H (0.0-0.1) k/mm3 - Exam Constitutional: Present: Alert, Oriented x3, Cooperative ENT Exam: Present: hearing grossly normal Respiratory: Present: lungs clear, normal breath sounds Cardiovascular/Chest: Present: regular rate, rhythm, no murmur Abdomen: Present: Normal bowel sounds, soft, nontender, nondistended Skin Exam: Present: other - Left foot wrapped Appearance: Present: appropriate appearance, appropriate insight Eye contact: Present: cooperative, good eye contact, normal speech Assessment/Plan Plan Narrative: WBC improved today. Clinically ulcer and cellulitis are improving per Dr. Shah. I am a little concerned with how high his WBC remains and am uncomfortable sending him home today. Culture sensitivity is back and infection looks susceptible to oral antibiotics. Will consider switching him to augmentin later today and if WBC continues to trend down discharge to home tomorrow. 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
[2020-06-19 08:57] LABS: Albumin * 3.2 gm/dl (3.4-5.0); Anion Gap 14.5 mmol/L (6.8-13.8); BUN/Creatinine Ratio 11.8 (9.0-21.6); Bilirubin, Total 1.1 mg/dL (0.0-1.1); Ca. Corrected For Albumin 8.7 mg/dL (8.4-10.2); Calcium * 8.4 mg/dL (7.9-10.9); Carbon Dioxide 23.6 mmol/L (24-32.6); Potassium 4.1 mmol/L (3.4-4.6); Total Protein 6.5 gm/dL (6.2-8.2)
[2020-06-19 09:15] LABS: Band 13 % (0-2.0); Basophil 1 % (0-1); Eosinophil 1 % (0-3); Lymphocyte 7 % (20-51); Monocyte 13 % (0-9); Neutrophil 65 % (42-75); Neutrophil # 16.1 K/mm3 (1.3-6.0); Platelet Estimate Normal (NORMAL); RBC Morphology Normal (NORMAL)
--- NOTE | 2020-06-19 12:09 | PN ---
Subjective - Date and Time Seen Date: 06/19/20 Time: 11:53 Subjective Narrative: Patient is seen at bedside resting. Reports that he continues to feel better, with more energy. States that his left foot pain near resolved, only having pain if he is up on it. Dressing to the left foot has remained clean, dry, and intact as instructed. He denies any nausea, vomiting, fevers, or chills. Final culture results growing Staph Aureus, Enterococcus Faecalis, and Group F Strep, sensitive to oral antibiotics. WBC count has trended back down today after addition of Zosyn. No new concerns today. Objective - Review of Systems Generalized/Overall Review: Reports: Fatigue - improving. Denies: Chills, Fever Cardiac: Reports: Edema Abdominal: Denies: Nausea, Vomiting, Diarrhea Musculoskeletal Complaints: Reports: Other - intermittent left foot pain Neurological: Reports: Numbness Skin: Reports: Other - left foot ulcer; erythema left foot - improving Endocrine: Denies: Intolerance to Cold, Intolerance to Heat, Excessive Sweating, Increased Hunger, Increased Thirst - Vitals Vitals: Last Vital Signs Temp 36.0 C 06/19/20 10:00 Pulse 74 06/19/20 10:00 Resp 18 06/19/20 10:00 BP 134/52 06/19/20 10:00 Pulse Ox 98 06/19/20 10:00 - Abnormal Lab Findings Abnormal Lab Findings: Abnormal Lab Results 06/19/20 06/19/20 Range/Units 07:51 07:51 WBC 24.8 H (4.0-10.5) K/mm3 RBC 3.01 L (4.7-6.0) M/mm3 Hgb 9.2 L (13.5-18.0) gm/dL Hct 29.3 L (42.0-52.0) % MCHC 31.4 L (32-36) g/dl RDW 19.7 H (11.5-14.0) % MPV 12.4 H (8-11.3) fl Immature Gran % (Auto) 13.90 H (0.001-0.429) % Immature Gran # (Auto) 3.45 H (0.000-0.0310) K/mm3 Band Neuts % (Manual) 13 H (0-2.0) % Lymphocytes % 5.2 L (20-51) % Lymphocytes % (Manual) 7 L (20-51) % Monocytes % 12.2 H (0.0-9) % Monocytes % (Manual) 13 H (0-9) % Basophils % 1.9 H (0.0-1.0) % Neutrophils # 16.4 H (1.3-6.0) K/mm3 Neutrophils # (Manual) 16.1 H (1.3-6.0) K/mm3 Lymphocytes # 1.28 L (1.5-3.5) k/mm3 Monocytes # 3.0 H (0.0-1.0) k/mm3 Monocytes # (Manual) 3.2 H (0.0-1.0) k/mm3 Basophils # (Manual) 0.2 H (0.0-0.1) k/mm3 Absolute Basophils 0.5 H (0.0-0.1) k/mm3 Carbon Dioxide 23.6 L (24-32.6) mmol/L Anion Gap 14.5 H (6.8-13.8) mmol/L Est GFR (Non-Af Amer) 58 L (60-130) mL/min Random Glucose 162 H (70-110) mg/dL Albumin 3.2 L (3.4-5.0) gm/dl - Exam Exam Narrative: Erythema near resolved today. Remains localized about the periphery of ulceration within the 1st webspace, otherwise resolved. There are still 2 ulcerations to the left foot. The first located at the plantar surface of the 1st metatarsal head measuring 2.8 x 1.8 x 1.5 cm. The second is in the 1st webspace and communicates via tunneling with the first ulceration. This ulcer measures 1.8 x 1.2 x 1.5 cm. Loss of tissue to both is full thickness with exposure of subcutaneous fat layer. Base of ulceration in the webspace today covered with mostly yellow, fibrotic slough tissue with only minimal louise necrotic tissue remaining where it communicates with the plantar ulceration. Ulceration to plantar surface of the 1st metatarsal head with mostly yellow, fibrotic slough tissue, however there remains some dark louise necrotic tissue distally where it communicates with the webspace ulceration. Surrounding skin of the ulcer within the webspace remains erythematous, skin otherwise pink and intact, both have improved since more aggressive debridement visit yesterday. Edema improving about the foot. There remains a moderate amount of serous drainage, no longer with malodor, no longer with purulence. No exposed tendon or bone at this time. MRI reviewed - no indications of osteomyelitis noted. Consistent with cellulitis of the foot. Constitutional: Present: Alert, Oriented x3, Cooperative Extremity: Present: pedal edema - improving with compression Skin Exam: Present: other - as above Neurologic: Present: sensory deficit Appearance: Present: appropriate appearance Eye contact: Present: cooperative Thoughts: Present: normal thought pattern Assessment/Plan Plan Narrative: Discussed with patient exam findings as well as MRI and culture results. Recommend repeat debridment of ulcerations today, patient gives verbal consent for debridement. Ulcerations debrided to subcutaneous tissue with currettage, excising devitalized tissue down to healthy, bleeding subcutaneous tissue. Some fibrotic tissue does remain over the surfaces of the ulcerations following debridement, all necrotic tissue is able to be excised. Hemostasis is achieved with compression. Patient tolerated well without complication. Ulcerations are cleansed with sterile saline and dressed today with Aquacel AG, dry gauze, roll gauze, secured with 2 layers of size E Tubigrip to not only reinforce the dressing, but to try to continue to reduce some edema about the lower leg and foot. Cultures sensitive to oral antibiotics, and agree with switch to oral medications prior to discharge. Can continue with current IV antibiotics until WBC count at a more comfortable level for transition to oral medications for discharge home. His erythema is nearly resolved, and both ulcerations have improved in appearance since debridement yesterday. No longer with foul odor from foot. His WBC count has also trended back down since yesterday. MRI with no concerns for osteomyelitis, so will plan to continue with local care at this time. Discussed that this does not mean he may not require some form of surgical care for this in the future. He will need close monitoring to ensure he does not develop recurrent or deeper infection. States understanding of this. I will plan to continue daily dressing changes to monitor his progress. If he continues to improve, would agree with discharge home tomorrow. 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
[2020-06-19] MEDS: AMOX TR/POTASSIUM CLAVULANATE 875 MG TABLET PO SCH (20:56)
[2020-06-19] MEDS: SIMVASTATIN 40 MG TABLET PO SCH (20:58)
[2020-06-20 06:04] LABS: Hematocrit 27.7 % (42.0-52.0); Hemoglobin 8.7 gm/dL (13.5-18.0); Mean Cell Volume 95.8 fl (78-100); Mean Corpuscular Hemoglobin 30.1 pg (27-31); Mean Corpuscular Hgb Conc 31.4 g/dl (32-36); Mean Platelet Volume 11.5 fl (8-11.3); Platelet Count 242 K/mm3 (150-450); Red Blood Count 2.89 M/mm3 (4.7-6.0); Red Cell Distribution Width 19.1 % (11.5-14.0); White Blood Count 17.1 K/mm3 (4.0-10.5)
[2020-06-20 06:17] LABS: Albumin * 3.1 gm/dl (3.4-5.0); Anion Gap 13.8 mmol/L (6.8-13.8); BUN/Creatinine Ratio 15.9 (9.0-21.6); Bilirubin, Total 0.9 mg/dL (0.0-1.1); Ca. Corrected For Albumin 9.2 mg/dL (8.4-10.2); Calcium * 8.8 mg/dL (7.9-10.9); Carbon Dioxide 24.4 mmol/L (24-32.6); Potassium 4.2 mmol/L (3.4-4.6); Total Protein 6.7 gm/dL (6.2-8.2)
[2020-06-20] MEDS: HYDROcodone/ACETAMINOPHEN 1 EACH TABLET PO PRN ×2 (06:26→13:55)
[2020-06-20] MEDS: INSULIN LISPRO 100 UNITS/ML VIAL SC SCH ×2 (06:27→11:51)
[2020-06-20 06:39] LABS: Atypical (Reactive) Lymph 2 % (0-2); Band 9 % (0-2.0); Monocyte 12 % (0-9)
[2020-06-20 06:41] LABS: Neutrophil # 9.1 K/mm3 (1.3-6.0)
[2020-06-20 06:42] LABS: Neutrophil 53 % (42-75); Total Cells Counted 100
[2020-06-20 06:43] LABS: Anisocytosis 1+; Basophil 2 % (0-1); Eosinophil 2 % (0-3); Immature Granulocyte 12 (0-1); Lymphocyte 8 % (20-51); Poikilocytosis 1+
[2020-06-20] MEDS: AMOX TR/POTASSIUM CLAVULANATE 875 MG TABLET PO SCH (08:09)
[2020-06-20] MEDS: SACCHAROMYCES BOULARDII 250 MG CAPSULE PO SCH (08:09)
[2020-06-20] MEDS: GABAPENTIN 100 MG CAPSULE PO SCH (08:09)
[2020-06-20] MEDS: METOPROLOL SUCCINATE 100 MG TABLET.SA PO SCH (08:09)
[2020-06-20] MEDS: ENALAPRIL MALEATE 5 MG TABLET PO SCH (08:10)
[2020-06-20] MEDS: TAMSULOSIN HCL 0.4 MG CAP.SR.24H PO SCH (08:10)
--- NOTE | 2020-06-20 11:14 | PN ---
Subjective - Date and Time Seen Date: 06/20/20 Time: 10:53 Subjective Narrative: Patient is seen at bedside resting. Reports that he is no longer having pain in his left foot. Dressing to the left foot has remained clean, dry, and intact as instructed. He denies any nausea, vomiting, fevers, or chills. Final culture results growing Staph Aureus, Enterococcus Faecalis, and Group F Strep, sensitive to oral antibiotics. WBC count has again trended down today. No new concerns today. Is hoping to go home. Objective - Review of Systems Generalized/Overall Review: Denies: Chills, Fever, Fatigue Cardiac: Reports: Edema Abdominal: Denies: Nausea, Vomiting, Diarrhea Neurological: Reports: Numbness Skin: Reports: Other - left foot ulcer; left foot erythema resolved - Vitals Vitals: Last Vital Signs Temp 36.3 C 06/20/20 10:00 Pulse 81 06/20/20 10:00 Resp 18 06/20/20 10:00 BP 132/67 06/20/20 10:00 Pulse Ox 94 06/20/20 10:00 - Abnormal Lab Findings Abnormal Lab Findings: Abnormal Lab Results 06/20/20 06/20/20 Range/Units 05:59 05:59 WBC 17.1 H D (4.0-10.5) K/mm3 RBC 2.89 L (4.7-6.0) M/mm3 Hgb 8.7 L (13.5-18.0) gm/dL Hct 27.7 L (42.0-52.0) % MCHC 31.4 L (32-36) g/dl RDW 19.1 H (11.5-14.0) % MPV 11.5 H (8-11.3) fl Band Neuts % (Manual) 9 H (0-2.0) % Lymphocytes % (Manual) 8 L (20-51) % Monocytes % (Manual) 12 H (0-9) % Basophils % (Manual) 2 H (0-1) % Immature Granulocytes 12 H (0-1) Neutrophils # (Manual) 9.1 H (1.3-6.0) K/mm3 Lymphocytes # (Manual) 1.4 L (1.5-3.5) k/mm3 Monocytes # (Manual) 2.1 H (0.0-1.0) k/mm3 Basophils # (Manual) 0.3 H (0.0-0.1) k/mm3 Est GFR (Non-Af Amer) 56 L (60-130) mL/min Random Glucose 134 H (70-110) mg/dL Albumin 3.1 L (3.4-5.0) gm/dl - Exam Exam Narrative: Erythema resolved today. There are still 2 ulcerations to the left foot. The first located at the plantar surface of the 1st metatarsal head measuring 2.8 x 1.8 x 1.5 cm. The second is in the 1st webspace and communicates via tunneling with the first ulceration. This ulcer measures 1.8 x 1.2 x 1.5 cm. Loss of tissue to both is full thickness with exposure of subcutaneous fat layer. Base of ulceration in the webspace today covered with mostly yellow, fibrotic slough tissue, now with some granulation tissue developing. Ulceration to plantar surface of the 1st metatarsal head with mostly yellow, fibrotic slough tissue, also with some granulation tissue developing. Surrounding skin of the ulcer within the webspace no longer erythematous, skin now pink and intact. Edema improving about the foot. There remains a moderate amount of serous drainage, no longer with malodor, no longer with purulence. No exposed tendon or bone at this time. Constitutional: Present: Alert, Oriented x3, Cooperative Extremity: Present: pedal edema - improving with compression Skin Exam: Present: other - as above Neurologic: Present: sensory deficit Appearance: Present: appropriate appearance Eye contact: Present: cooperative Assessment/Plan Plan Narrative: Discussed with patient exam findings. Erythema now resolved, edema continues to improve with use of compression. Ulcerations developing some granulation tissue, no longer with necrotic tissue present following debridements. Do not feel they are in need of debridement today. Ulcerations are cleansed with sterile saline and dressed today with Aquacel AG, dry gauze, roll gauze, secured with 2 layers of size E Tubigrip to not only reinforce the dressing, but to try to continue to reduce some edema about the lower leg and foot. Cultures sensitive to oral antibiotics, and agree with switch to oral medications for discharge home. His WBC count has also decreased again since yesterday. Discussed that this does not mean he may not require some form of surgical care for this in the future. He will need close monitoring to ensure he does not develop recurrent or deeper infection. States understanding of this. I believe he is stable for discharge home at this time. Discussed with Dr. Fowler. He is educated on dressing changes at home and he is to wash well with soap and water, pat dry with a clean towel, and apply Aquacel Ag, dry gauze, roll gauze, and tape. He will then secure with Tubigrip compression stocking. Advised that if he does not feel he is able to change this dressing tomorrow, or if he does not have family to assist with dressing change, it will be safe to keep intact until his follow up with me. He is educated on signs of worsening infection and is to seek medical attention immediately should any develop. I will plan to follow up on Sunday in the wound center. - Problems/Diagnosis (1) Diabetic foot ulcer associated with type 2 diabetes mellitus, with fat layer exposed Problem: Acute Qualifiers: Diabetic foot ulcer location: other Laterality: left Qualified Code(s): E11.621 - Type 2 diabetes mellitus with foot ulcer; L97.522 - Non-pressure chronic ulcer of other part of left foot with fat layer exposed (2) Cellulitis of foot, left Problem: Resolved
--- NOTE | 2020-06-20 12:33 | DS ---
(1) Cellulitis of foot, left Problem: Resolved (2) Anemia Problem: Acute Qualifiers: Anemia type: unspecified type Qualified Code(s): D64.9 - Anemia, unspecified (3) Diabetic foot ulcer associated with type 2 diabetes mellitus, with fat layer exposed Problem: Acute Qualifiers: Diabetic foot ulcer location: other Laterality: left Qualified Code(s): E11.621 - Type 2 diabetes mellitus with foot ulcer; L97.522 - Non-pressure chronic ulcer of other part of left foot with fat layer exposed Date of Discharge:: 06/20/20 Hospital Course: Stephen is a 79 yo male admitted for left foot cellulitis and diabetic foot ulcer with necrotic tissue. Podiatry was consulted and managed daily dressing changes and tissue debridement. Initial treatment failed as wound was not improving and podiatry debridement was needed along with antibiotic adjustments. He was initially started on vancomycin from the ER, but zosyn was added with the WBC continuing to rise. After starting zosyn the WBC trended down. Wound culture were obtained by Dr. Shah and ultimately grew various strains of staph/strep and he was switched to Augmenting orally. WBC continued to improve to 17k at discharge and has improved enough to discharge to home with oral antibiotics for the next two weeks at a minimum. He will follow up with Dr. Shah for outpatient wound treatment. He was also admitted for a hgb of 6 which appears to be more chronic. He had no evidence of bleeding on exam or history. He has no history of anemia but has not had labs recently. Due to his hgb of 6 he was transfused 3 units of pRBCs and his hgb improved to 9. It is 8.7 today at discharge. I am concerned about an underlying production cause and will refer him to hematology for outpatient management of his anemia. Peripheral smear was obtained but I have not yet seen results from pathology. Procedures Performed: see notes below List Procedures: Diabetic foot ulcer debridement per Podiatry Results and Findings: Pending Mircobiology Results 06/15/20 21:08 Blood Blood Culture - Preliminary NO GROWTH AFTER 48 HOURS 06/15/20 20:38 Blood Blood Culture - Preliminary NO GROWTH AFTER 48 HOURS Lab Pending Results 06/15/20 20:38: WBC 30.2 H, RBC 2.22 L, Hgb 6.8 L*, Hct 22.5 L*, MCV 101.4 H, MCH 30.6, MCHC 30.2 L, RDW 23.2 H, Plt Count 208, MPV 12.6 H, Neutrophils % (Manual) 70, Band Neuts % (Manual) 5 H, Lymphocytes % (Manual) 15 L, Monocytes % (Manual) 10 H, Neutrophils # (Manual) 21.1 H, Lymphocytes # (Manual) 4.5 H, Monocytes # (Manual) 3.0 H, Platelet Estimate Normal, Anisocytosis 1+ 06/15/20 20:38: Sodium 136, Plasma Sodium 137, Potassium 4.6, Chloride 100, Carbon Dioxide 22.3 L, Anion Gap 18.3 H, BUN 40 H, Creatinine 1.68 H, Est GFR (Non-Af Amer) 42 L, BUN/Creatinine Ratio 23.8 H, Random Glucose 150 H, Calcium 8.9, Calcium Adj for Albumin 8.7, Total Bilirubin 0.8, AST 22, ALT 22, Alkaline Phosphatase 71, C-Reactive Prot, Quant 15.9 H, Total Protein 7.7, Albumin 3.8 06/15/20 20:38: Mean Blood Glucose 137, Hemoglobin A1c 6.4 H 06/15/20 20:38: Lactic Acid, Venous 2.7 H* 06/15/20 21:08: Blood Type O Positive, Antibody Screen Negative, Crossmatch See Detail 06/15/20 21:15: Stool Occult Blood Negative 06/15/20 21:29: SARS-CoV-2 (PCR) Not detected 06/15/20 23:56: Lactic Acid, Venous 1.0 06/16/20 04:25: WBC 23.1 H D, RBC 2.02 L, Hgb 6.2 L*, Hct 20.4 L*, MCV 101.0 H, MCH 30.7, MCHC 30.4 L, RDW 21.2 H, Plt Count 145 L, MPV 12.0 H 06/16/20 14:25: WBC 22.9 H, RBC 2.94 L, Hgb 8.9 L, Hct 28.5 L, MCV 96.9, MCH 30.3, MCHC 31.2 L, RDW 19.9 H, Plt Count 159, MPV 12.7 H, Neutrophils % (Manual) 61, Band Neuts % (Manual) 14 H, Lymphocytes % (Manual) 12 L, Monocytes % (Manual) 10 H, Basophils % (Manual) 3 H, Neutrophils # (Manual) 14.0 H, Lymphocytes # (Manual) 2.7, Monocytes # (Manual) 2.3 H, Basophils # (Manual) 0.7 H, Platelet Estimate Normal, Giant Platelets Trace, Polychromasia 1+, Anisocytosis 2+, Spherocytes Trace 06/16/20 14:25: Sodium 137, Plasma Sodium 136, Potassium 4.4, Chloride 104, Carbon Dioxide 24.3, Anion Gap 13.1, BUN 35 H, Creatinine 1.39, Est GFR (Non-Af Amer) 53 L D, BUN/Creatinine Ratio 25.2 H, Random Glucose 54 L D, Calcium 8.6, Calcium Adj for Albumin 8.7, Total Bilirubin 0.7, AST 26, ALT 23, Alkaline Phosphatase 69, Total Protein 7.3, Albumin 3.5 06/16/20 14:25: Peripheral Blood Smear Smear sent to path. 06/17/20 08:20: WBC 25.3 H, RBC 2.88 L, Hgb 8.9 L, Hct 28.1 L, MCV 97.6, MCH 30.9, MCHC 31.7 L, RDW 20.0 H, Plt Count 178, MPV 12.7 H, Neutrophils % (Manual) 66, Band Neuts % (Manual) 5 H, Lymphocytes % (Manual) 11 L, Monocytes % (Manual) 17 H, Basophils % (Manual) 1, Neutrophils # (Manual) 16.7 H, Lymphocytes # (Manual) 2.8, Monocytes # (Manual) 4.3 H, Basophils # (Manual) 0.3 H, Platelet Estimate Normal, Anisocytosis 1+ 06/17/20 08:20: Sodium 135, Plasma Sodium 135, Potassium 4.2, Chloride 103, Carbon Dioxide 23.6 L, Anion Gap 12.6, BUN 25 H, Creatinine 1.28, Est GFR (Non- Af Amer) 58 L, BUN/Creatinine Ratio 19.5, Random Glucose 129 H D, Calcium 8.2, Calcium Adj for Albumin 8.6, Total Bilirubin 1.1, AST 22, ALT 20, Alkaline Phosphatase 59, Total Protein 6.6, Albumin 3.1 L 06/18/20 06:33: WBC 26.7 H, RBC 2.95 L, Hgb 9.1 L, Hct 28.9 L, MCV 98.0, MCH 30.8, MCHC 31.5 L, RDW 20.4 H, Plt Count 207, MPV 12.9 H, Neutrophils % (Manual) 60, Band Neuts % (Manual) 3 H, Lymphocytes % (Manual) 8 L, Monocytes % (Manual) 18 H, Eosinophils % (Manual) 2, Basophils % (Manual) 4 H, Immature Granulocytes 5 H, Neutrophils # (Manual) 16.0 H, Lymphocytes # (Manual) 2.1, Monocytes # (Manual) 4.8 H, Eosinophils # (Manual) 0.5, Basophils # (Manual) 1.1 H, Platelet Estimate Normal, Anisocytosis 1+, Spherocytes Trace, Ovalocytes Trace 06/18/20 06:33: Sodium 137, Plasma Sodium 138, Potassium 4.0, Chloride 102, Carbon Dioxide 21.8 L, Anion Gap 17.2 H, BUN 20, Creatinine 1.12, Est GFR (Non- Af Amer) 68, BUN/Creatinine Ratio 17.9, Random Glucose 139 H, Calcium 8.7, Calcium Adj for Albumin 9.0, Total Bilirubin 1.3 H, AST 25, ALT 19, Alkaline Phosphatase 69, Total Protein 7.1, Albumin 3.2 L 06/19/20 07:51: WBC 24.8 H, RBC 3.01 L, Hgb 9.2 L, Hct 29.3 L, MCV 97.3, MCH 30 .6, MCHC 31.4 L, RDW 19.7 H, Plt Count 241, MPV 12.4 H, Immature Gran % (Auto) 13.90 H, Immature Gran # (Auto) 3.45 H, Neutrophils % 65.8, Neutrophils % (Manual) 65, Band Neuts % (Manual) 13 H, Lymphocytes % 5.2 L, Lymphocytes % (Manual) 7 L, Monocytes % 12.2 H, Monocytes % (Manual) 13 H, Eosinophils % 1.0, Eosinophils % (Manual) 1, Basophils % 1.9 H, Basophils % (Manual) 1, Nucleated RBC % 0.0, Neutrophils # 16.4 H, Neutrophils # (Manual) 16.1 H, Lymphocytes # 1.28 L, Lymphocytes # (Manual) 1.7, Monocytes # 3.0 H, Monocytes # (Manual) 3.2 H, Eosinophils # 0.2, Eosinophils # (Manual) 0.2, Basophils # (Manual) 0.2 H, Absolute Basophils 0.5 H, Platelet Estimate Normal, RBC Morphology Normal 06/19/20 07:51: Sodium 136, Plasma Sodium 137, Potassium 4.1, Chloride 102, C arbon Dioxide 23.6 L, Anion Gap 14.5 H, BUN 15, Creatinine 1.27, Est GFR (Non-Af Amer) 58 L, BUN/Creatinine Ratio 11.8, Random Glucose 162 H, Calcium 8.4, Calcium Adj for Albumin 8.7, Total Bilirubin 1.1, AST 22, ALT 20, Alkaline Phosphatase 63, Total Protein 6.5, Albumin 3.2 L 06/20/20 05:59: WBC 17.1 H D, RBC 2.89 L, Hgb 8.7 L, Hct 27.7 L, MCV 95.8, MCH 30.1, MCHC 31.4 L, RDW 19.1 H, Plt Count 242, MPV 11.5 H, Neutrophils % (Manual) 53, Band Neuts % (Manual) 9 H, Lymphocytes % (Manual) 8 L, Monocytes % (Manual) 12 H, Eosinophils % (Manual) 2, Basophils % (Manual) 2 H, Immature Granulocytes 12 H, Neutrophils # (Manual) 9.1 H, Lymphocytes # (Manual) 1.4 L, Monocytes # (Manual) 2.1 H, Eosinophils # (Manual) 0.3, Basophils # (Manual) 0.3 H, Atypic/Reactive Lymphs 2, Poikilocytosis 1+, Anisocytosis 1+ 06/20/20 05:59: Sodium 139, Plasma Sodium 140, Potassium 4.2, Chloride 105, Carbon Dioxide 24.4, Anion Gap 13.8, BUN 21, Creatinine 1.32, Est GFR (Non-Af Amer) 56 L, BUN/Creatinine Ratio 15.9, Random Glucose 134 H, Calcium 8.8, Calcium Adj for Albumin 9.2, Total Bilirubin 0.9, AST 23, ALT 20, Alkaline Phosphatase 61, Total Protein 6.7, Albumin 3.1 L Discharge Location: Home Disposition: Home self-care Condition: Fair Discharge Activity: Activity as tolerated Discharge Diet: Consistent carbs Referrals: Jeniffer Ying ARNP [Primary Care Provider] - One Week Ariana Valadez MD [Non Staff Physicians] - (Patient needs new patient appointment with Hematology for anemia) Cecily Shah DPM [Staff Physician] - 06/22/20 (wound clinic with Dr. Shah Sonam) Problem Oriented Discharge Instructions to Patient/Family: Cellulitis, Adult, [id number], Diabetes Mellitus and Foot Care Additional Patient Instructions (free text): Please fax chart information to his PCP Jeniffer Ying at . Wound Care: wash well with soap and water, pat dry with a clean towel, and apply Aquacel Ag, dry gauze, roll gauze, and tape. Then secure with Tubigrip compression stocking. If unable to change this dressing tomorrow, or if he does not have family to assist with dressing change, it will be safe to keep intact until his follow up. Watch for signs of worsening infection and seek medical attention immediately should any develop. Follow up on Sunday in the wound center. Prescriptions (Any new or edited meds): Amox Tr/Potassium Clavulanate [Augmentin 875-125 Tablet] 875 mg PO BID #30 tab [facility]: [id number] Saccharomyces Boulardii [Florastor] 250 mg PO BID #30 cap [facility]: [id number] HYDROcodone/ACETAMINOPHEN [Heath 5-325] 1 ea PO Q3H PRN #30 tab PRN Reason: Moderate Pain (Pain Scale 4-6) Transmission Status: Received by [id number] Complete Home Medications List: Complete Home Medication List: Enalapril Maleate 10 mg PO BID 06/15/20 Gabapentin 100 mg PO QAM 06/15/20 Gabapentin 200 mg PO QPM 06/15/20 Metoprolol Succinate 100 mg PO DAILY 06/15/20 Pioglitazone HCl 15 mg PO DAILY 06/15/20 Simvastatin 40 mg PO HS 06/15/20 Tamsulosin HCl 0.4 mg PO DAILY 06/15/20 glipiZIDE [Glipizide Xl] 20 mg PO DAILY 06/15/20 metFORMIN HCL [Metformin HCl] 1,000 mg PO BID 06/15/20 Amox Tr/Potassium Clavulanate [Augmentin 875-125 Tablet] 875 mg PO BID #30 tab 06/20/20 HYDROcodone/ACETAMINOPHEN [Heath 5-325] 1 ea PO Q3H PRN #30 tab 06/20/20 Saccharomyces Boulardii [Florastor] 250 mg PO BID #30 cap 06/20/20 Forms: Patient Portal Registration
[2020-06-20 14:19] VITALS: BP 138/62
== END 2020-06-20 14:00 | disposition home or self-care (01) | DRG 623 ==
LOC: ER 19:50 → INTOOBSV 22:53 → MS 22:53
PROVIDERS: ADMIT Family Medicine; ATTEND Family Medicine
DX: E11.621 Type 2 diabetes mellitus with foot ulcer; D64.9 Anemia, unspecified; Z79.4 Long term (current) use of insulin; E11.40 Type 2 diabetes mellitus with diabetic neuropathy, unspecified; L03.116 Cellulitis of left lower limb; I10 Essential (primary) hypertension; E78.5 Hyperlipidemia, unspecified; L97.522 Non-pressure chronic ulcer of other part of left foot with fat layer exposed